=== PATIENT | male | born 1970 | race Caucasian/White ===

== ENCOUNTER 2023-10-20 01:36 | Emergency (ER) | payer OTHER ==
[~2023-10-20] VITALS: Ht 175.3 cm; Wt 104.3 kg
[~2023-10-20 01:36] MED LIST: AMOCLA500 PO; CEPH500 PO; HYDACE5 PO; IBUP800 PO; NAPR550 PO; OXYACE5T PO; PENVK500 PO; PROM25 PO; RXCLIN PO; RXHYDACE PO; RXNAPNA550 PO; RXOXYACE PO; TRAM50 PO
[2023-10-20] MEDS ORDERED: Trimethoprim/Sulfamethoxazole DS Tab PO ONE (03:10)
[2023-10-20] MEDS ORDERED: Ondansetron 4 MG TAB PO ONE (03:10)
[2023-10-20] MEDS ORDERED: Ketorolac Tromethamine 15mg Vial IM ONE (03:10)
[2023-10-20] MEDS ORDERED: ADTHYZA PO ×2 (03:14)
[2023-10-20 03:21] VITALS: BP 142/79
[2023-10-20] MEDS ORDERED: SULTRIDS PO (03:27)
[2023-10-20] MEDS ORDERED: ONDA4ODT MM (03:27)
== END 2023-10-20 03:36 | disposition home or self-care (01) ==
LOC: ER 01:36
DX: L02.215 Cutaneous abscess of perineum (principal); Z79.890 Hormone replacement therapy; Z79.899 Other long term (current) drug therapy
CPT/HCPCS: 96372; 99282-25; A9270; J1885

== ENCOUNTER 2023-11-27 14:12 | Day surgery (SDC) | payer OTHER ==
[~2023-11-27] VITALS: Ht 175.3 cm; Wt 103.9 kg
[~2023-11-27 14:12] MED LIST changes: +ADTHYZA PO; +Lactated Ringer's 1,000 ML IV ONE; +Lidocaine 2% 5 ML SDV ONE; +Methylene Blue 1% 100 MG/10 ML VIAL ONE; +ONDA4ODT MM; +SULTRIDS PO; +propofoL 40 ML IV ONE
[2023-11-27] MEDS ORDERED: C COMPLEX1000 M1 (14:29)
[2023-11-27] MEDS ORDERED: 5-HTP100 M1 (14:29)
[2023-11-27] MEDS ORDERED: PHARBEDRYL50 M2 (14:30)
[2023-11-27] MEDS ORDERED: ASHWAGANDHA (14:30)
[2023-11-27] MEDS ORDERED: Vitamin D1000 UNI1 (14:30)
[2023-11-27] MEDS ORDERED: DHEA50 M1 (14:31)
[2023-11-27] MEDS ORDERED: MAGNESIUM OXID500 MG (14:31)
[2023-11-27] MEDS ORDERED: Milk Thistle175 M1 (14:31)
[2023-11-27] MEDS ORDERED: LACT (14:31)
[2023-11-27] MEDS ORDERED: Selenomax200 MCG (14:32)
[2023-11-27] MEDS ORDERED: TESTOSTERONE (14:33)
[2023-11-27] MEDS ORDERED: Armour Thyroid15 MG (14:33)
[2023-11-27] MEDS ORDERED: TURMERIC500 M2 (14:33)
[2023-11-27] MEDS ORDERED: Lactated Ringer's 1,000 ML IV ONE (14:44)
[2023-11-27] MEDS ORDERED: propofoL 20 ML IV ONE (15:37)
[2023-11-27 16:11] VITALS: BP 122/87
== END 2023-11-27 16:14 | disposition home or self-care (01) ==
LOC: ORSCSDS 14:12
PROVIDERS: Surgery
PROC: 0DBK8ZX Excision of Ascending Colon, Via Natural or Artificial Opening Endoscopic, Diagnostic (ICD-10-PCS; principal; 2023-11-27 15:30)
PROC: 0DBM8ZX Excision of Descending Colon, Via Natural or Artificial Opening Endoscopic, Diagnostic (ICD-10-PCS; principal; 2023-11-27 15:30)
PROC: 0DBC8ZX Excision of Ileocecal Valve, Via Natural or Artificial Opening Endoscopic, Diagnostic (ICD-10-PCS; principal; 2023-11-27 15:30)
DX: L02.215 Cutaneous abscess of perineum (principal); D12.2 Benign neoplasm of ascending colon; D12.4 Benign neoplasm of descending colon; F41.9 Anxiety disorder, unspecified; E03.9 Hypothyroidism, unspecified; F32.A Depression, unspecified; E78.5 Hyperlipidemia, unspecified; E66.9 Obesity, unspecified; Z68.33 Body mass index [BMI] 33.0-33.9, adult; F17.210 Nicotine dependence, cigarettes, uncomplicated; Z79.899 Other long term (current) drug therapy
CPT/HCPCS: 88305; J2704; J7120; Q9968

== ENCOUNTER 2023-12-24 15:06 | Observation (INO) | payer OTHER ==
[~2023-12-24] VITALS: Ht 175.3 cm; Wt 102.1 kg
[~2023-12-24 15:06] MED LIST changes: +5-HTP100 M1; +ASHWAGANDHA; +Armour Thyroid15 MG; +C COMPLEX1000 M1; +DHEA50 M1; +LACT; -Lactated Ringer's 1,000 ML IV ONE; -Lidocaine 2% 5 ML SDV ONE; +MAGNESIUM OXID500 MG; -Methylene Blue 1% 100 MG/10 ML VIAL ONE; +Milk Thistle175 M1; +PHARBEDRYL50 M2; +Selenomax200 MCG; +TESTOSTERONE; +TURMERIC500 M2; +Vitamin D1000 UNI1; -propofoL 40 ML IV ONE
[2023-12-24 15:44] LABS: BASOPHILS ABSOLUTE AUTO 0.06 K/mm3 (0.00-0.23); BASOPHILS PERCENT AUTO 1 % (0-2); EOSINOPHILS ABSOLUTE AUTO 0.27 K/mm3 (0.00-0.68); EOSINOPHILS PERCENT AUTO 3 % (0-6); Hematocrit 43.5 % (37.0-53.0); Hemoglobin 14.9 g/dL (13.5-17.5); IMMATURE GRAN ABSOLUTE AUTO 0.02 K/mm3 (0.00-0.10); IMMATURE GRAN PERCENT AUTO 0 % (0-1); LYMPHOCYTES ABSOLUTE AUTO 2.24 K/mm3 (0.84-5.20); LYMPHOCYTES PERCENT AUTO 25 % (21-46); MONOCYTES ABSOLUTE AUTO 0.62 K/mm3 (0.16-1.47); MONOCYTES PERCENT AUTO 7 % (4-13); Mean Corpuscular HGB 30.9 pg (26.0-34.0); Mean Corpuscular HGB Conc 34.3 g/dL (31.5-36.5); Mean Corpuscular Volume 90 fL (80-100); Mean Platelet Volume 9.2 fL (9.1-12.4); NEUTROPHILS ABSOLUTE AUTO 5.71 K/mm3 (1.96-9.15); NEUTROPHILS PERCENT AUTO 64 % (41-73); Platelet Count 284 K/mm3 (150-400); RDW Coefficient Variation 12.4 % (11.7-14.2); RDW Standard Deviation 40.8 fL (35.1-46.3); Red Blood Cell Count 4.82 M/mm3 (4.30-5.90); White Blood Cell Count 8.92 K/mm3 (4.00-11.30)
[2023-12-24 16:12] LABS: Albumin, Blood 4.1 g/dL (3.4-5.0); Albumin/Globulin Ratio 1.1 (0.8-1.8); Bilirubin, Total 0.4 mg/dL (0.1-1.0); Calcium, Blood 9.4 mg/dL (8.5-10.1); Creatinine, Blood 1.16 mg/dL (0.60-1.20); Globulin, Blood 3.9 g/dL (2.2-4.0); Potassium, Blood 4.3 mmol/L (3.5-5.5)
[2023-12-24] MEDS ORDERED: Prochlorperazine Edisylate 10 mg Vial IV ONE (20:35)
[2023-12-24] MEDS ORDERED: Ketorolac Tromethamine 15mg Vial IV ONE (20:35)
[2023-12-24] MEDS ORDERED: DiphenhydrAMINE HCl 50 MG/ML 1ML Vial IV ONE (20:35)
[2023-12-24] MEDS ORDERED: FLU VACC TS2024-25(6MOS UP)/PF 45 MCG/0.5 ML SYRINGE IM SCH (22:15)
[2023-12-24] MEDS ORDERED: OxyCODONE HCL 5 MG TAB PO PRN (22:15)
[2023-12-24] MEDS ORDERED: Acetaminophen 325 MG TABLET PO PRN (22:15)
[2023-12-24] MEDS ORDERED: Ondansetron HCl 2 MG / ML 2ML Vial IV PRN (22:20)
[2023-12-24] MEDS ORDERED: Prochlorperazine Edisylate 10 mg Vial IV PRN (22:20)
[2023-12-24 23:47] VITALS: BP 132/74
[2023-12-25] VITALS (11 sets, daily range): BP systolic 101–137; BP diastolic 66–93
[2023-12-25 04:57] LABS: BASOPHILS ABSOLUTE AUTO 0.06 K/mm3 (0.00-0.23); BASOPHILS PERCENT AUTO 1 % (0-2); EOSINOPHILS ABSOLUTE AUTO 0.32 K/mm3 (0.00-0.68); EOSINOPHILS PERCENT AUTO 4 % (0-6); Hemoglobin 13.3 g/dL (13.5-17.5); IMMATURE GRAN ABSOLUTE AUTO 0.03 K/mm3 (0.00-0.10); IMMATURE GRAN PERCENT AUTO 0 % (0-1); LYMPHOCYTES ABSOLUTE AUTO 2.67 K/mm3 (0.84-5.20); LYMPHOCYTES PERCENT AUTO 31 % (21-46); MONOCYTES ABSOLUTE AUTO 0.68 K/mm3 (0.16-1.47); MONOCYTES PERCENT AUTO 8 % (4-13); Mean Corpuscular HGB 30.8 pg (26.0-34.0); Mean Corpuscular HGB Conc 34.1 g/dL (31.5-36.5); Mean Corpuscular Volume 90 fL (80-100); Mean Platelet Volume 9.6 fL (9.1-12.4); NEUTROPHILS ABSOLUTE AUTO 4.76 K/mm3 (1.96-9.15); NEUTROPHILS PERCENT AUTO 56 % (41-73); Platelet Count 238 K/mm3 (150-400); RDW Coefficient Variation 12.6 % (11.7-14.2); RDW Standard Deviation 41.5 fL (35.1-46.3); Red Blood Cell Count 4.32 M/mm3 (4.30-5.90); White Blood Cell Count 8.52 K/mm3 (4.00-11.30)
[2023-12-25 05:33] LABS: Albumin, Blood 3.5 g/dL (3.4-5.0); Albumin/Globulin Ratio 1.1 (0.8-1.8); Bilirubin, Total 0.2 mg/dL (0.1-1.0); Calcium, Blood 9.1 mg/dL (8.5-10.1); Creatinine, Blood 1.09 mg/dL (0.60-1.20); Globulin, Blood 3.2 g/dL (2.2-4.0); Potassium, Blood 3.6 mmol/L (3.5-5.5); Thyroid Stimulating Hormone 8.81 uIU/mL (0.360-4.800); Total Protein, Blood 6.7 g/dL (6.4-8.2)
[2023-12-25] MEDS ORDERED: Thyroid 60 MG Tab PO SCH ×2 (06:00)
[2023-12-25] MEDS ORDERED: Lactobacil 2-S.Thermo-Bifido 1 1 Cap PO SCH (09:00)
[2023-12-25] MEDS ORDERED: Docusate Sodium 100 MG Cap PO SCH (09:00)
[2023-12-25] MEDS ORDERED: propofoL 20 ML IV ONE (09:56)
[2023-12-25] MEDS ORDERED: FentaNYL Citrate 50 MCG/ML 2 ML Injection ONE (09:56)
[2023-12-25] MEDS ORDERED: Dexamethasone Sod Phos 10 MG/ML 1ML VIAL ONE (09:56)
[2023-12-25] MEDS ORDERED: Ondansetron HCl 2 MG / ML 2ML Vial ONE (09:56)
[2023-12-25] MEDS ORDERED: Lactated Ringer's 1,000 ML IV SCH ×2 (10:05)
[2023-12-25] MEDS ORDERED: Artificial Tear Opth Oint 3.5 GM ONE (10:09)
--- NOTE | 2023-12-25 10:21 | NUR ---
PT TO DAY SURGERY AT APPROX 1015.
[2023-12-25] MEDS ORDERED: Bupivacaine 0.5% HCl 5 MG/ML 30MLVIAL ONE (10:31)
--- NOTE | 2023-12-25 11:21 | NUR ---
12/25/23 1121 Samuel Sánchez 2GM GIVEN IV BY
[2023-12-25] MEDS ORDERED: Acetaminophen650 M1 PO (13:54)
[2023-12-25] MEDS ORDERED: THYR60 PO (13:54)
[2023-12-25] MEDS ORDERED: VISBIOME 112.51 EACH PO (13:55)
[2023-12-25] MEDS ORDERED: AMOCLA875 PO (13:55)
[2023-12-25] MEDS ORDERED: IBUP400 PO (13:56)
--- NOTE | 2023-12-25 14:17 | NUR ---
DISCHARGE PT AND SPOUSE EDUCATED ON AND RECEIVED PRINTED DISCHARGE INSTRUCTIONS AND VERBALIZED AN UNDERSTANDING. NEW RX FAXED TO [facility] PER PT REQUEST. IV DC'D. [facility]AU[facility] SENT HOME WITH PT. PT REPORTS TOLERABLE PAIN, VOIDING, AMBULATING INDEP, AMBROSIO PO, AND POST OP VS STABLE. PT GATHERED ALL PERSONAL BELONGINGS AND WALKED OUT WITH SPOUSE.
== END 2023-12-25 14:25 | disposition home or self-care (01) ==
LOC: ER 15:06 → SURS 15:07
PROVIDERS: Physician Assistant; Surgery; ADMIT Student in an Organized Health Care Education/Training Program
PROC: 0J9B0ZZ Drainage of Perineum Subcutaneous Tissue and Fascia, Open Approach (ICD-10-PCS; principal; 2023-12-25 11:00)
DX: L02.215 Cutaneous abscess of perineum (principal); E03.9 Hypothyroidism, unspecified; F32.A Depression, unspecified; E78.5 Hyperlipidemia, unspecified; Z72.0 Tobacco use; Z79.899 Other long term (current) drug therapy
CPT/HCPCS: 36415; 72193; 80053; 84443; 85025; 87070; 87075; 87076; 87205; 96374-59; 96375-59; 99284-25; A9270; G0378; J0780; J1100; J1200; J1885; J2405; J2704; J3010; J7120; Q9967

== ENCOUNTER 2025-02-14 16:21 | Emergency (ER) | payer OTHER ==
[~2025-02-14] VITALS: Ht 175.3 cm; Wt 93.4 kg
[~2025-02-14 16:21] MED LIST changes: +AMOCLA875 PO; +Acetaminophen650 M1 PO; +IBUP400 PO; +THYR60 PO; +VISBIOME 112.51 EACH PO
[2025-02-14 17:14] VITALS: BP 147/112
[2025-02-14] MEDS ORDERED: NS 1,000 ML IV SCH (17:20)
[2025-02-14 18:01] LABS: BASOPHILS ABSOLUTE AUTO 0.05 K/mm3 (0.00-0.23); BASOPHILS PERCENT AUTO 1 % (0-2); EOSINOPHILS ABSOLUTE AUTO 0.28 K/mm3 (0.00-0.68); EOSINOPHILS PERCENT AUTO 3 % (0-6); Hematocrit 43.2 % (37.0-53.0); Hemoglobin 14.6 g/dL (13.5-17.5); IMMATURE GRAN ABSOLUTE AUTO 0.01 K/mm3 (0.00-0.10); IMMATURE GRAN PERCENT AUTO 0 % (0-1); LYMPHOCYTES ABSOLUTE AUTO 2.58 K/mm3 (0.84-5.20); LYMPHOCYTES PERCENT AUTO 31 % (21-46); MONOCYTES ABSOLUTE AUTO 0.68 K/mm3 (0.16-1.47); MONOCYTES PERCENT AUTO 8 % (4-13); Mean Corpuscular HGB Conc 33.8 g/dL (31.5-36.5); Mean Corpuscular Volume 89 fL (80-100); NEUTROPHILS ABSOLUTE AUTO 4.66 K/mm3 (1.96-9.15); NEUTROPHILS PERCENT AUTO 57 % (41-73); NRBC ABSOLUTE 0.00 K/mm3 (0.00-0.02); NRBC Auto 0.0 /100 WBC (0.0-0.2); Platelet Count 258 K/mm3 (150-400); RDW Coefficient Variation 12.4 % (11.7-14.2); RDW Standard Deviation 40.6 fL (35.1-46.3)
[2025-02-14 18:24] LABS: Alanine Aminotransfer (ALT/SGP 23.0 U/L (12-78); Albumin, Blood 4.0 g/dL (3.4-5.0); Albumin/Globulin Ratio 1.2 (0.8-1.8); Anion Gap 10.0 mmol/L (3-11); Aspartate Aminotrans (AST/SGOT 11.0 U/L (12-37); Bilirubin, Total 0.3 mg/dL (0.1-1.0); Blood Urea Nitrogen 19.0 mg/dL (8-24); CO2, Blood 21.0 mmol/L (21-32); Calcium, Blood 8.9 mg/dL (8.5-10.1); Chloride, Blood 108.0 mmol/L (98-108); Creatinine, Blood 0.93 mg/dL (0.60-1.20); Globulin, Blood 3.3 g/dL (2.2-4.0); Glucose, Blood 103.0 mg/dL (70-99); Potassium, Blood 4.4 mmol/L (3.5-5.5); Sodium, Blood 135.0 mmol/L (136-145); Total Protein, Blood 7.3 g/dL (6.4-8.2)
== END 2025-02-14 20:16 | disposition home or self-care (01) ==
LOC: ER 16:21
PROVIDERS: Emergency Medicine
DX: L03.315 Cellulitis of perineum (principal); Z79.899 Other long term (current) drug therapy
CPT/HCPCS: 72193; 80053; 83605; 85025; 96360-59; 99283-25; J7030; Q9967